=== PATIENT | male | born 1965 ===

== ENCOUNTER 2021-06-15 14:05 | Emergency (ER) ==
[2021-06-15] MEDS ORDERED: Ondansetron ODT 4 MG TAB ONE (14:27)
== END 2021-06-15 15:00 | disposition home or self-care (01) ==
LOC: ERS 14:05
DX: R11.10 Vomiting, unspecified (principal); R21 Rash and other nonspecific skin eruption; F17.210 Nicotine dependence, cigarettes, uncomplicated
CPT/HCPCS: 99283; Q0162